=== PATIENT | female | born 1985 | race Caucasian/White ===

== ENCOUNTER 2017-08-26 08:24 | Outpatient (CLI) | payer BC ==
[~2017-08-26] VITALS: Ht 175.3 cm; Wt 76.4 kg
[~2017-08-26 08:24] MED LIST: MOTRIN 600600 MG/TAB PO; PERCOCET 325 MG1 TA2 PO; PRENATAL1 TA1 PO
[2017-08-26 08:30] VITALS: BP 123/61; PULSE 75; TEMP 97.6
[2017-08-26 08:36] VITALS: BP 123/61; PULSE 75; TEMP 97.6
[2017-08-26 09:30] VITALS: BP 91/50; PULSE 73
[2017-08-26 09:36] LABS: COLLECTION METHOD CLEAN CATCH
[2017-08-26 09:40] LABS: MEAN CELL VOLUME 96 fl (80.0-100.0); MEAN CORPUSCULAR HGB CONC 34 g/dl (33.0-37.0); MEAN PLATELET VOLUME 9.7 fl (7.4-10.4); PLATELET COUNT 186 K/mm3 (130-400); RED BLOOD COUNT 3.33 M/mm3 (4.10-5.30); WHITE BLOOD COUNT 8.1 K/mm3 (4.8-10.8)
[2017-08-26 09:42] LABS: HEMATOCRIT 31.8 % (37.0-47.0); HEMOGLOBIN 10.8 g/dl (12.5-16.0); MEAN CORPUSCULAR HEMOGLOBIN 32 pg (27.0-31.0)
[2017-08-26 09:47] LABS: PH 7 (5-8); SQUAMOUS EPITHELIAL 0-2 /hpf; URINE APPEARANCE Clear; URINE BACTERIA None Seen /hpf; URINE BILIRUBIN Negative (NEGATIVE); URINE BLOOD Negative (NEGATIVE); URINE COLOR Straw; URINE GLUCOSE Negative (NEGATIVE); URINE KETONE Trace (NEGATIVE); URINE LEUKOCYTE ESTERASE Negative (NEGATIVE); URINE PROTEIN(semi-quant) Negative (NEGATIVE); URINE RBC 0-2 /hpf; URINE UROBILINOGEN Negative (NEGATIVE); URINE WBC None Seen /hpf
[2017-08-26 10:00] VITALS: PULSE 78
== END 2017-08-26 10:00 | disposition home or self-care (01) ==
LOC: LDRO 08:24 → LDR 08:37 → LDRO 10:00
PROVIDERS: Obstetrics & Gynecology
DX: O62.9 Abnormality of forces of labor, unspecified (principal); Z3A.34 34 weeks gestation of pregnancy
CPT/HCPCS: OP

== ENCOUNTER 2017-09-30 03:16 | Inpatient (IN) | payer BC ==
[~2017-09-30] VITALS: Ht 175.3 cm; Wt 80.9 kg
[2017-09-30] VITALS (13 sets, daily range): BP systolic 97–1114; BP diastolic 53–79; PULSE 57–86; TEMP 97.5–98.9
[2017-09-30] MEDS ORDERED: ZANTAC 150MG T150 MG PO (03:59)
[2017-09-30 04:01] LABS: BASO % 0.4 % (0.0-2.0); EOS % 0.4 % (0-4.0); GRAN # 4.3 (1.4-6.5); GRAN % 63.1 % (42.2-75.2); HEMOGLOBIN 12.2 g/dl (12.5-16.0); LYMPH # 1.9 (1.2-3.4); LYMPH % 27.8 % (20.0-51.0); MEAN CELL VOLUME 92 fl (80.0-100.0); MEAN CORPUSCULAR HEMOGLOBIN 32 pg (27.0-31.0); MEAN CORPUSCULAR HGB CONC 34 g/dl (33.0-37.0); MEAN PLATELET VOLUME 10.5 fl (7.4-10.4); MONO # 0.5 (0.1-0.6); MONO % 7.7 % (1.7-9.3); PLATELET COUNT 205 K/mm3 (130-400); RED BLOOD COUNT 3.87 M/mm3 (4.10-5.30); REDCELL DISTRIBUTION WIDTH-CV 12.7 % (11.5-14.5)
[2017-09-30 04:04] LABS: HEMATOCRIT 35.5 % (37.0-47.0)
[2017-10-01 08:30] VITALS: BP 119/65; PULSE 86; TEMP 98.1
[2017-10-01] MEDS ORDERED: MOTRIN 800800 MG/TAB PO (10:03)
[2017-10-01] MEDS ORDERED: PERCOCET 325 MG1 TA2 PO (10:03)
[2017-10-01 21:00] VITALS: BP 106/63; PULSE 76; TEMP 97.8
[2017-10-02 07:48] VITALS: BP 109/69; PULSE 74; TEMP 98
== END 2017-10-02 11:55 | disposition home or self-care (01) | DRG 775 ==
LOC: LDRO 03:16 → OB 03:43 → LDR 03:43 → OB 21:48
PROVIDERS: Student in an Organized Health Care Education/Training Program
PROC: 0KQM0ZZ Repair Perineum Muscle, Open Approach (ICD-10-PCS; principal; 2017-09-30)
PROC: 10E0XZZ Delivery of Products of Conception, External Approach (ICD-10-PCS; 2017-09-30)
DX: O70.1 Second degree perineal laceration during delivery (principal); Z37.0 Single live birth; Z3A.39 39 weeks gestation of pregnancy
CPT/HCPCS: J2400; J2795